=== PATIENT | male | born 1975 | race Caucasian/White ===

== ENCOUNTER 2018-05-03 21:27 | Emergency (ER) | payer OTHER ==
[~2018-05-03] VITALS: Ht 177.8 cm; Wt 66.8 kg
[2018-05-03 22:24] VITALS: BP 115/59
== END 2018-05-03 22:39 | disposition home or self-care (01) ==
LOC: EMS 21:28
DX: S91.302A Unspecified open wound, left foot, initial encounter (principal); F11.90 Opioid use, unspecified, uncomplicated; X58.XXXA Exposure to other specified factors, initial encounter; Y93.89 Activity, other specified; Y92.89 Other specified places as the place of occurrence of the external cause; Y99.8 Other external cause status